=== PATIENT | female | born 1980 ===

== ENCOUNTER 2017-06-07 16:18 | Emergency (ER) | payer OTHER ==
[2017-06-07 16:29] VITALS: BP 134/91; PULSE 94; RESP 16; TEMP 99.2; O2SAT 98
--- NOTE | 2017-06-07 16:51 | C.PDOC ---
History Of Present Illness 37 year old female presents to the ED for an evaluation of right hand ulnar aspect laceration sustained on May 23. Patient states a laceration repair was performed in [facility] and had sutures removed one week later however, wound was not fully closed. She was told she needed to see plastic surgeon but could not due to lack of insurance. Patient states wound is not healing and noted discharge from wound a few days ago. She was seen in [facility] and given antibiotics and has been compliant with medications. Patient notes pain with movement and is seeking a second evaluation. She denies fever or other complaints. Time Seen by Provider: 06/07/17 16:31 Chief Complaint (Nursing): Abnormal Skin Integrity History Per: Patient History/Exam Limitations: no limitations Onset/Duration Of Symptoms: Days Ago (15 days ago ), Laceration Current Symptoms Are (Timing): Still Present Location Of Injury: Right: Hand Quality Of Symptoms: Painful, Draining Recent travel outside of the [place]: No Additional History Per: Prior Records Past Medical History Reviewed: Historical Data, Nursing Documentation, Vital Signs Vital Signs: Last Vital Signs Temp 99.2 F 06/07/17 16:24 Pulse 94 H 06/07/17 16:24 Resp 16 06/07/17 16:24 BP 134/91 H 06/07/17 16:24 Pulse Ox 98 06/07/17 19:37 Surgical History: Cholecystectomy Family History: States: Unknown Family Hx - Social History Hx Tobacco Use: No Hx Alcohol Use: No Hx Substance Use: No - Immunization History Hx Tetanus Toxoid Vaccination: Yes Hx Influenza Vaccination: No Hx Pneumococcal Vaccination: No Review Of Systems Constitutional: Negative for: Fever, Chills Musculoskeletal: Positive for: Hand Pain (right hand laceration and drainage ) Neurological: Negative for: Weakness, Numbness Physical Exam - Physical Exam Appears: Non-toxic, No Acute Distress Skin: Warm, Dry, Other (Non-healing wound to ulnar aspect of right palm. 0.5 cm of tissue. No swelling, discharge, or malodor. ) Head: Atraumatic, Normacephalic Eye(s): bilateral: Normal Inspection, EOMI Oral Mucosa: Moist Neck: Supple Chest: Symmetrical, No Deformity Cardiovascular: Rhythm Regular Respiratory: Normal Breath Sounds, No Rhonchi, No Wheezing Extremity: Normal ROM, No Tenderness, Capillary Refill (good capillary refill, less than 2 seconds ) Pulses: Left Radial: Normal, Right Radial: Normal Neurological/Psych: Oriented x3, Normal Speech Gait: Steady ED Course And Treatment O2 Sat by Pulse Oximetry: 98 (room air ) Pulse Ox Interpretation: Normal Progress Note: Wound was cleansed and irrigated with NS. Three steri-stripes were applied. Patient was instructed to follow up for evaluation in the clinic Disposition Counseled Patient/Family Regarding: Diagnosis, Need For Followup - Disposition Referrals: [facility] [Outside] Disposition: HOME/ ROUTINE Disposition Time: 16:49 Condition: STABLE Additional Instructions: Por favor realice el seguimiento en la clnica para donato evaluacin ms detallada y busque la consulta del especialista de la mano. Termine el antibi regina segn lo prescrito y tome medicamentos para el dolor segn sea necesario Mantenga el sadiq cubierta bobby 1-2 [place] Prescriptions: Ibuprofen [Motrin] 1 tab PO TID PRN #30 tab PRN Reason: Pain Instructions: Acute Wound Care (ED) Forms: [employer] (Palestinian) Print Language: FAROESE - POA Present On Arrival: None - Clinical Impression Clinical Impression: Encounter for wound care - PA / BATH STEWARD/STEWARDESS / Resident Statement MD/DO has reviewed & agrees with the documentation as recorded. - Scribe Statement The provider has reviewed the documentation as recorded by the Scribe Celia Sy All medical record entries made by the Scribe were at my direction and personally dictated by me. I have reviewed the chart and agree that the record accurately reflects my personal performance of the history, physical exam, medical decision making, and the department course for this patient. I have also personally directed, reviewed, and agree with the discharge instructions and disposition.
== END 2017-06-07 16:54 | disposition home or self-care (01) ==
LOC: C.ER 16:18
DX: Z48.00 Encounter for change or removal of nonsurgical wound dressing (principal)